=== PATIENT | male | born 1940 | race Two or more races ===

== ENCOUNTER → 2025-03-27 | Outpatient (CLI) | payer MEDICAID, SELFPAY ==
--- NOTE | 2025-03-27 11:02 | XR_ITS ---
Examination: Retroperitoneal ultrasound, complete Technique: Multiple high resolution grayscale images of the retroperitoneum obtained, including kidneys and bladder. Exam date and time:March 27, 2025 1114 hours INDICATIONS: Left renal cystic disease history FINDINGS: Right kidney 9.4 cm cortex 1.3 cm Left kidney 10.4 cm cortex 1.1 cm Upper pole left renal cyst 2.2 cm lower pole cyst 9 mm Moderate bilateral renal parenchymal scar formation Contracted urinary bladder Prostate 4.5 x 5.7 x 4.9 cm calcifications no prostate nodules IMPRESSION: Small kidneys with bilateral renal cortical thinning Moderate bilateral renal parenchymal scar formation Small left renal cysts
== END | disposition home or self-care (01) ==
PROVIDERS: PCP Nurse Practitioner Family; Referring Provider Nurse Practitioner Family; Visit Provider Nurse Practitioner Family
DX: N28.89 Other specified disorders of kidney and ureter (principal); N28.1 Cyst of kidney, acquired
CPT/HCPCS: 76770